=== PATIENT | female | born 1995 | race Caucasian/White ===

== ENCOUNTER 2018-10-15 12:49 | Outpatient (CLI) | payer MEDICAID, OTHER ==
[~2018-10-15] VITALS: Ht 160 cm; Wt 89.8 kg
[2018-10-15 13:36] VITALS: Ht 160 cm; Wt 89.8 kg
[2018-10-15 13:37] VITALS: BP 129/84; PULSE 98; RESP 17
[2018-10-15] MEDS ORDERED: DEXTROSE 5%-LR 1,000 ML IV SCH (17:00)
--- NOTE | 2018-10-15 18:26 | TRIAGE ---
OB Triage Datetime Report Generated by CPN: 10/15/2018 18:26 Datetime: 10/15/2018 18:19 Labor Evaluation Pattern: Normal: <= 5 Contractions in 10 Minutes Resting Tone [place]: Relaxed Heart Rate FHR Baseline Rate: 140 Variability: Moderate 6-25 bpm Accelerations: 15X15 Decelerations: None Category: Category I Pain Assessment Pain Presence: None/Denies Pain Type: N/A Datetime: 10/15/2018 17:30 Labor Evaluation Pattern: Normal: <= 5 Contractions in 10 Minutes Resting Tone [place]: Relaxed Contraction Comments: no uc Heart Rate FHR Baseline Rate: 145 Variability: Moderate 6-25 bpm Decelerations: None Category: Category I Pain Assessment Pain Presence: None/Denies Pain Type: N/A Datetime: 10/15/2018 16:30 Labor Evaluation Pattern: Normal: <= 5 Contractions in 10 Minutes Resting Tone [place]: Relaxed Contraction Comments: NO UC Heart Rate FHR Baseline Rate: 135 Variability: Moderate 6-25 bpm Accelerations: 15X15 Decelerations: Variable Category: Category II Datetime: 10/15/2018 15:22 Heart Rate FHR Baseline Rate: 145 Variability: Moderate 6-25 bpm Accelerations: 10X10 Decelerations: None Comments: modetate variability with period of time minimal variability Datetime: 10/15/2018 14:29 Labor Evaluation Pattern: Normal: <= 5 Contractions in 10 Minutes Resting Tone [place]: Relaxed Contraction Comments: no uc Heart Rate FHR Baseline Rate: 145 Variability: Moderate 6-25 bpm Accelerations: 10X10 Pain Assessment Pain Presence: None/Denies Pain Type: N/A Datetime: 10/15/2018 13:36 Assessment Type: Triage Maternal Assessment Level of Consciousness: Fully Conscious DTR's/Clonus: DTRs 2+; No Clonus Headache: Denies Blurred Vision: No Respiratory Effort: Unlabored; Regular Rhythm; Equal Expansion Breath Sounds, Left: Clear and Equal Breath Sounds, Right: Clear and Equal Nausea/Vomiting: Denies RUQ Epigastric Pain: Denies Lower Extremities Edema: None Degree: None Upper Extremities Edema: None Degree: None Facial Edema: None Fall Risk Assessment History of Falling: (0) No Secondary Diagnosis: (0) No Ambulatory Aid: (0) Bedrest/Nurse Assist IV Therapy: (0) No Gait: (0) Normal/Bedrest/Immobile Mental Status: (0) Oriented to Own Ability Fall Score: 0 Fall Risk Score Definition: No Risk: No action required Datetime: 10/15/2018 13:27 Time of Arrival: 10/15/2018 12:45 EGA: 37.5 Arrived By: Ambulatory Arrived From: Dr. Lane Chief Complaint: extended monitor due to non-reactive nst @ office Movement: Present Contractions: Denies/Absent Rupture of Membranes: Denies Vaginal Bleeding: None Vaginal Discharge: Denies Recent Sexual Intercouse: Denies Abdominal Trauma: Not Applicable Patient Complaints: None Time Provider Notified: 10/15/2018 12:21 Provider Notified:
--- NOTE | 2018-10-25 07:16 | PN ---
Triage Information Date/Time late entry for service rendered on 10/15/18 Reason for visit: for NST Weeks of Gestation 37w5d /Para Diabetes: none Hypertention: induced Objective Heart Rate: 150's Heart Rate Comments CAT I Contractions: None Results/Medications Imaging Results BPP 8 SHARMIN 11 Disposition: Discharge Assessment/Plan A IUP 37w5D antepartum test P discharge home withroutine labor instructions CHEL LAUREN MD Oct 25, 2018 07:03
== END 2018-10-15 18:30 | disposition home or self-care (01) ==
LOC: OBT 12:49 → PP1 12:49 → L-D 13:25 → OBT 18:30
PROVIDERS: ATTEND Specialist
DX: O13.3 Gestational [pregnancy-induced] hypertension without significant proteinuria, third trimester (principal); Z3A.37 37 weeks gestation of pregnancy
CPT/HCPCS: 76818; 96360; J7121; Z7500; G0463

== ENCOUNTER 2018-10-28 05:30 | Inpatient (IN) | payer OTHER ==
[~2018-10-28] VITALS: Ht 158.8 cm; Wt 89.8 kg
[2018-10-28 06:16] VITALS: Ht 158.8 cm; Wt 89.8 kg
[2018-10-28 06:17] VITALS: BP 127/84; PULSE 98; RESP 18
[2018-10-28] MEDS: LACTATED RINGER'S 1,000 ML IV SCH ×3 (06:20→21:47)
[2018-10-28] MEDS ORDERED: PHENYLephrine (100 MCG/ML) 10ML SYG ONE (06:28)
[2018-10-28] MEDS ORDERED: morphine SULFATE/PF (10 MG/10 ML) INJ ONE (06:28)
[2018-10-28] MEDS ORDERED: ONDANSETRON 4 MG INJ ONE (06:28)
[2018-10-28] MEDS ORDERED: CARBOPROST 250 MCG INJ IM PRN (06:30)
[2018-10-28] MEDS ORDERED: CEFAZOLIN 2 GM/50 ML (PMX) 50 ML IVPB SCH (06:30)
[2018-10-28] MEDS ORDERED: OXYTOCIN 30 UNITS/LR 500 ML IV PRN (06:30)
[2018-10-28] MEDS ORDERED: METHYLERGONOVINE 0.2 MG INJ IM PRN (06:30)
[2018-10-28] MEDS ORDERED: OXYTOCIN 30 UNITS/LR 500 ML IV SCH (06:30)
[2018-10-28] MEDS ORDERED: MISOPROSTOL 200 MCG TAB PR PRN ×2 (06:30→08:00)
--- NOTE | 2018-10-28 06:31 | PREAC ---
Date/Time of Note Date/Time of Note DATE: 10/28/18 TIME: 06:29 Anesthesia Eval and Record Evaluation Time Pre-Procedure Interview DATE: 10/28/18 TIME: 06:29 Age 23 Sex female NPO: 8 hrs Preoperative diagnosis Previous Planned procedure Repeat Past Medical History Past Medical History: Includes Cardio: Other ( Induced HTN) Pulm: Asthma Surgery & Anesthesia Issues No known issue Meds Anticoagulation: No Beta Parisa within 24 hr: No Reason Beta Parisa not given: Pt. not on B-Parisa No Active Prescriptions or Reported Meds Current Medications Lactated Ringer's 1,000 ml @ 125 mls/hr Q8H IV Last administered on 10/28/18at 06:20; Admin Dose 125 MLS/HR; Start 10/28/18 at 06:09 Cefazolin Sodium/ Dextrose 50 ml @ 100 mls/hr ONCE IVPB ; Start 10/28/18 at 06:30 Oxytocin/Lactated Ringer's 500 ml @ 125 mls/hr POST IV ; Start 10/28/18 at 06:30 Oxytocin/Lactated Ringer's 500 ml @ 0 mls/hr ONCE PRN IV .VAGINAL BLEEDING; Start 10/28/18 at 06:30 Methylergonovine Maleate (Methergine) 0.2 mg ONCE PRN IM .VAGINAL BLEEDING; Start 10/28/18 at 06:30 Carboprost Tromethamine (Hemabate) 250 mcg ONCE PRN IM .VAGINAL BLEEDING; Start 10/28/18 at 06:30 Misoprostol (Cytotec) 1,000 mcg ONCE PRN ND .VAGINAL BLEEDING; Start 10/28/18 at 06:30 Meds reviewed: Yes Allergies Coded Allergies: No Known Allergy (Unverified , 10/15/18) Allergies Reviewed: Yes Labs/Studies Labs Reviewed: Reviewed by anesthesiologist Result Diagram: 10/28/18 0608 Laboratory Tests 10/28/18 06:08 test: N/A Pre-procedure Exam Last vitals Vital Signs Date Temp Pulse Resp B/P (MAP) Pulse Ox O2 O2 Flow FiO2 Time Delivery Rate 10/28/18 98.2 98 18 127/84 06:17 (98) Airway: Adequate mouth opening Mallampati: Mallampati II Teeth: Normal Lung: Normal Heart: Normal ASA Physical Status ASA physical status: 2 Emergency: None Planned Anesthetic Neuraxial: Spinal Planned Pain Management Sub-arachniod narcotics Pre-operative Attestations Prior to commencing anesthesia and surgery, the patient was re-evaluated, there was verification of: *The patient's identity *The results of appropriate recent lab work and preoperative vital signs *The above evaluation not changing prior to induction *Anesthetic plan, risk benefits, alternative and complications discussed with patient/family; questions answered; patient/family understands, accepts and wi shes to proceed. MERISSA MARION MD Oct 28, 2018 06:31
[2018-10-28] MEDS ORDERED: OXYTOCIN 10 UNIT INJ ONE (07:00)
--- NOTE | 2018-10-28 07:43 | HP ---
Date/Time of Note Date/Time of Note DATE: 10/28/18 TIME: 07:41 OB - History Hx of Present Free Text/Dictation 23 YO with EDC 019 with IUP at 39.1 weeks with history of previous delivery, who desires to have repeat delivery. I discussed with the patient the risks, benefits, indications, and alternatives of procedure including but not limited to risks of infection, bleeding, damage to other organs, bowel, bladder, hernia formation, scar formation, possibility of blood transfusion, possible need for emergency hysterectomy. She was allowed to ask questions. All her questions were answered. Informed consent has been obtained. Care: Good Care Ultrasounds: Normal mid trimester US Obstetrical Complications: None, Other (Chronic hypertension, h/o PIH and Asthma) Medical Complications: Other (Chronic hypertension, h/o PIH and Asthma) Past Family/Social History * Past Medical, Surgical, Family and Obstetric Histories reviewed from chart. OB Admission Exam Vital Signs Vital Signs Vital Signs Date Temp Pulse Resp B/P (MAP) Pulse Ox O2 O2 Flow FiO2 Time Delivery Rate 10/28/18 98.2 98 18 127/84 06:17 (98) Physical Exam HEENT: WNL Heart: Rhythm Normal Lungs: Clear, Equal Abdomen: WNL Extremities: Normal Reflexes: Normal Last 72 hours Lab Results CBC & BMP 10/28/18 06:08 OB Assessment/Plan Other Assessment: IUP at 39.1 weeks Desires repeat c/s Plan: Section YINA MITCHELL MD Oct 28, 2018 07:43
[2018-10-28] MEDS ORDERED: LACTATED RINGER'S 1,000 ML IV SCH (07:44)
[2018-10-28] MEDS ORDERED: OXYCODONE/ACETAMINOPHEN (5/325) TAB PO PRN ×4 (08:00→08:30)
[2018-10-28] MEDS ORDERED: NA PHOSPHATE/BIPHOS 133 ML ENEMA PR PRN (08:00)
[2018-10-28] MEDS ORDERED: LANOLIN HPA 1 PKT TOP PRN (08:00)
[2018-10-28] MEDS ORDERED: TRIMETHOBENZAMIDE 100 MG/ML VIAL IM PRN (08:30)
[2018-10-28] MEDS ORDERED: NALBUPHINE HCL (10 MG/1 ML) INJ IV PRN (08:30)
[2018-10-28] MEDS ORDERED: LABETALOL HCL 20MG INJ IV PRN (08:30)
[2018-10-28] MEDS ORDERED: ONDANSETRON 4 MG INJ IV PRN ×2 (08:30)
[2018-10-28] MEDS ORDERED: hydrALAzine 20 MG INJ IV PRN (08:30)
[2018-10-28] MEDS ORDERED: MIDAZOLAM 1 MG/ML 2 ML INJ IV PRN (08:30)
[2018-10-28] MEDS ORDERED: DIPHENHYDRAMINE 50 MG INJ IV PRN ×2 (08:30)
[2018-10-28] MEDS ORDERED: EPHEDrine 25 MG/5 ML SYG IV PRN (08:30)
[2018-10-28] MEDS ORDERED: ALBUTEROL 0.083% (NEB) 2.5 MG/3 ML AMP HHN PRN (08:30)
[2018-10-28] MEDS ORDERED: morphine 2 MG INJ IV PRN ×2 (08:30)
[2018-10-28] MEDS ORDERED: HYDROmorphONE 1 MG/5 ML IV SYRINGE IV PRN (08:30)
[2018-10-28] MEDS ORDERED: MEPERIDINE 25 MG INJ IV PRN (08:30)
[2018-10-28] MEDS ORDERED: IPRATROPIUM (NEB) 0.5 MG/2.5 ML AMP HHN PRN (08:30)
[2018-10-28] MEDS ORDERED: FENTAnyl 50 MCG/ML VIAL IV PRN (08:30)
[2018-10-28] MEDS ORDERED: NALOXONE (0.4 MG/ML) INJ IV PRN (08:30)
--- NOTE | 2018-10-28 08:57 | OPR ---
Date/Time of Note Date/Time of Note DATE: 10/28/18 TIME: 08:52 Operative Report Procedure Date: Oct 28, 2018 Preoperative Diagnosis IUP at 39.1 weeks Desires repeat delivery Postoperative Diagnosis Same Bicornuate Uterus, was on the right cornua Operation/Procedure Performed Repeat Delivery Surgeon Bib Gray MD Patient Registration Clerk Yariel Castillo MD Anesthesia Type: spinal Estimated Blood Loss: other (500 ml) Transfusion none Specimen none Grafts/Implants none Tubes/Drains Berger Cath Complications none Pt Condition Post Procedure: stable Disposition: PACU Procedure Description Findings: normal tubes and ovaries bilaterally, Bicornuate Uterus, was on the right cornua The risks, benefits, indications, alternatives of procedure including, but not limited to risk of infection, bleeding, damage to other organs, bowel, bladder, hernia formation, scar formation, possibility of blood transfusions discussed with patient. She was allowed to ask questions. All her questions were answered. Informed consent was obtained. DESCRIPTION OF PROCEDURE: She was taken to the operating room. Spinal anesthesia was induced. She was prepped and draped in the usual sterile fashion. Surgical time out one. Anesthesia was tested to be adequate. With permission from anesthesiologist, a knife was used to make a Pfannenstiel skin incision. The incision was taken down in layers. The fascia was cut, undermined and from the underlying muscle using sharp and blunt dissection. All the bleeders were cauterized. Peritoneum was entered bluntly. A low transverse incision was developed over the uterus. Amniotic fluid was clear and adequate. A viable infant in vertex presentation was delivered without any difficulty. The cord was clamped and cut, handed to awaiting team. Placenta was then delivered. Uterus was exteriorized, wrapped around a moist lap. Inside uterus was cleaned using a dry lap. All residual membranes were removed. The uterine incision was then closed using #1 Monocryl in 2 layers. The uterus was inserted back inside the abdominal cavity. Irrigation was done carefully. Careful evaluation of the uterine incision revealed no further bleeding. The peritoneum and rectus muscles and fascia were evaluated. All bleeders cauterized. Peritoneum was closed using 2-0 Monocryl. At this time, the count was correct. Rectus muscle was reapproximated using 2-0 Monocryl. Rectus fascia was closed using #1 Vicryl. Subcutaneous tissue was cleaned and irrigated. All bleeders cauterized and the skin closed using 4-0 Monocryl. All counts correct. BIB GRAY MD Oct 28, 2018 08:57
--- NOTE | 2018-10-28 08:59 | PAC ---
Date/Time of Note Date/Time of Note DATE: 10/28/18 TIME: 08:16 Post-Anesthesia Notes Post-Anesthesia Note Last documented vital signs Vital Signs Date Temp Pulse Resp B/P (MAP) Pulse Ox O2 O2 Flow FiO2 Time Delivery Rate 10/28/18 98.2 98 18 127/84 06:17 (98) Activity: WNL Respiratory function: WNL Cardiovascular function: WNL Mental status: Baseline Pain reasonably controlled: Yes Hydration appropriate: Yes Nausea/Vomiting absent: Yes MERISSA MARION MD Oct 28, 2018 08:59
[2018-10-28] MEDS ORDERED: ALBUTEROL HFA 8 GM INHALER INH PRN (09:00)
[2018-10-28] MEDS: SENNA/DOCUSATE NA (8.6MG/50MG) TAB PO SCH ×2 (09:00→21:00)
[2018-10-28] MEDS: IBUPROFEN 600 MG TAB PO SCH ×2 (12:00→18:00)
[2018-10-28] MEDS: KETOROLAC 30 MG INJ IV PRN (12:40)
[2018-10-28 14:18] VITALS: BP 121/69; PULSE 86; RESP 18
[2018-10-28 16:00] VITALS: BP 119/80; PULSE 86; RESP 18
[2018-10-28 16:30] VITALS: BP 117/74; PULSE 80; RESP 18
[2018-10-28 17:30] VITALS: BP 121/67
[2018-10-28 19:30] VITALS: BP 117/73; PULSE 88; RESP 18
[2018-10-29 00:30] VITALS: BP 105/54; PULSE 87; RESP 18
[2018-10-29] MEDS: KETOROLAC 30 MG INJ IV PRN (02:22)
[2018-10-29 04:00] VITALS: BP 115/68; PULSE 80; RESP 18
[2018-10-29] MEDS: IBUPROFEN 600 MG TAB PO SCH ×5 (06:00→23:43)
[2018-10-29 08:25] VITALS: BP 114/75; PULSE 94; RESP 18
[2018-10-29] MEDS: SENNA/DOCUSATE NA (8.6MG/50MG) TAB PO SCH ×2 (08:42→21:09)
[2018-10-29] MEDS: LACTATED RINGER'S 1,000 ML IV SCH (11:44)
[2018-10-29 12:08] VITALS: BP 123/80; PULSE 81; RESP 17
[2018-10-29 15:55] VITALS: BP 116/88; PULSE 85; RESP 18
--- NOTE | 2018-10-29 16:59 | QN ---
Documentation Comment s/p c/s Subjective: no complaint Objective: Afebrile, VSS NAD A&O Abdomen: soft, appropriate tender Incision: no sign of bleeding/infection mild lochia Extremity: 1+ edema bilaterally Assessment: S/p C/S POD # 1 Recovering Well Plan: current care YINA MITCHELL MD Oct 29, 2018 16:59
[2018-10-29 19:50] VITALS: BP 116/72; PULSE 88; RESP 19
[2018-10-30 04:08] VITALS: BP 109/72; PULSE 77; RESP 19
[2018-10-30] MEDS: IBUPROFEN 600 MG TAB PO SCH ×3 (05:42→18:05)
[2018-10-30 08:00] VITALS: BP 105/67; PULSE 80; RESP 18
[2018-10-30] MEDS: SENNA/DOCUSATE NA (8.6MG/50MG) TAB PO SCH ×2 (08:41→21:07)
[2018-10-30 16:00] VITALS: BP 125/85; PULSE 74; RESP 20
--- NOTE | 2018-10-30 17:58 | QN ---
Documentation Comment Postop day #2 Status post repeat Patient stable and afebrile Vital signs stable VS - Last 72 Hours, by Label Date Temp Pulse Resp B/P (MAP) Pulse Ox O2 O2 Flow FiO2 Time Delivery Rate 10/30/18 97.6 74 20 125/85 16:00 (98) 10/30/18 97.9 80 18 105/67 08:00 (80) 10/30/18 97.9 77 19 109/72 Room Air 04:08 (84) 10/29/18 97.9 88 19 116/72 Room Air 19:50 (87) 10/29/18 98.6 85 18 116/88 Room Air 15:55 (97) 10/29/18 98.3 81 17 123/80 Room Air 12:08 (94) 10/29/18 97.8 94 18 114/75 Room Air 08:25 (88) 10/29/18 98.6 80 18 115/68 96 Room Air 04:00 (84) 10/29/18 98.3 87 18 105/54 96 Room Air 00:30 (71) 10/28/18 98.2 88 18 117/73 98 Room Air 19:30 (88) 10/28/18 121/67 Room Air 17:30 (85) 10/28/18 98.5 80 18 117/74 Room Air 16:30 (88) 10/28/18 98.4 86 18 119/80 Room Air 16:00 (93) 10/28/18 98.1 86 18 121/69 Room Air 14:18 (86) 10/28/18 98.2 98 18 127/84 06:17 (98) Hematology - 72 Hrs Test 10/28/18 06:08 10/29/18 06:13 Hematocrit 39.7 % (37.0-47.0) 33.3 % (37.0-47.0) L Hemoglobin 13.5 g/dl (12.0-16.0) 11.2 g/dl (12.0-16.0) L Mean Corpuscular 29.8 pg (29.0-33.0) 30.1 pg (29.0-33.0) Hemoglobin Mean Corpuscular 34.0 g/dl (32.0-37.0) 33.6 g/dl (32.0-37.0) Hemoglobin Concent Mean Corpuscular Volume 87.6 fl (82.0-101.0) 89.5 fl (82.0-101.0) Mean Platelet Volume 10.1 fl (7.4-10.4) 9.3 fl (7.4-10.4) Platelet Count 255 10^3/UL (140-415) 209 10^3/UL (140-415) Red Blood Count 4.53 10^6/ul (4.20-5.40) 3.72 10^6/ul (4.20-5.40) L Red Cell Distribution 12.9 % (11.5-14.5) 12.9 % (11.5-14.5) Width White Blood Count 12.0 10^3/ul (4.8-10.8) 11.8 10^3/ul (4.8-10.8) H H Abdomen soft, fundus firm Incision clean,dry,intact Extremities nontender Assessment and plan Patient stable and doing well Encouraged to ambulate Continue with routine postop care JOSÉ CROWLEY MD Oct 30, 2018 17:58
[2018-10-30 19:40] VITALS: BP 117/78; PULSE 84; RESP 19
[2018-10-31] MEDS: IBUPROFEN 600 MG TAB PO SCH ×3 (00:25→12:19)
[2018-10-31 04:29] VITALS: BP_SYST 117; BP_SYST 120; BP_DIAS 78; BP_DIAS 81; PULSE 74; PULSE 83; RESP 20
[2018-10-31 08:30] VITALS: BP 121/94; PULSE 82; RESP 18
[2018-10-31] MEDS: SENNA/DOCUSATE NA (8.6MG/50MG) TAB PO SCH (09:00)
[2018-10-31] MEDS ORDERED: DIPHTH/TET/ACEL PERTUSS (ADULT) 0.5 ML VIAL IM* ONE (09:00)
[2018-10-31] MEDS ORDERED: MEASLES,MUMPS,RUBELLA VACCINE INJ SC* ONE (09:00)
--- NOTE | 2018-10-31 12:30 | DS ---
Date/Time of Note Date/Time of Note DATE: 10/31/18 TIME: 12:30 Discharge Summary Admission/Discharge Info Admit Date/Time Oct 28, 2018 at 05:30 Discharge Date/Time oct Discharge Diagnosis Patient Condition: Good Hospital Course uneventful Home Meds No Active Prescriptions or Reported Meds Primary Care Provider MD TANMAY Lazo RAMIN M.D. Oct 31, 2018 12:30
--- NOTE | 2018-10-31 12:30 | QN ---
Documentation Comment POD#3 is stable afebrile tolerates diet No VB +BM +voids VS stable Gen NAD Abd soft NT ND Incision intact Genitalia No blood at perineum --->Discharge Home --->precautions discussed ROSA DONATO M.D. Oct 31, 2018 12:30
--- NOTE | 2018-11-01 20:09 | DELSUM ---
Delivery Summary A-C Datetime Report Generated by CPN: 11/01/2018 20:09 DELIVERY PERSONNEL Installation Helper: Ciara Wu MATERNAL INFORMATION Delivery Anesthesia: Spinal Medications in Delivery: SEE ANESTHESIA FLOWSHEET Delivery QBL (ml): 500 Placenta Cultured: No Maternal Complications: None LABOR SUMMARY EDC: 10/31/2018 00:00 No. Babies in Womb: 1 Attempted: No Labor Anesthesia: None LABOR INFORMATION Onset of Labor: 10/28/2018 01:00 Oxytocin: N/A Group B Beta Strep: Negative Antibiotics # of Doses: 1 Antibiotics Time of Last Dose: 10/28/2018 07:45 Steroids Given: None Reason Steroids Not Administered: Not Applicable MEMBRANES Membranes Rupture Method: Artificial Rupture of Membranes: 10/28/2018 08:12 Length of Rupture (hr): 0.02 Amniotic Fluid Color: Clear Amniotic Fluid Amount: Moderate Amniotic Fluid Odor: None STAGES OF LABOR Stage 3 hr: 0 Stage 3 min: 1 Total Time in Labor hr: 7 Total Time in Labor min: 14 CSECTION DELIVERY Primary Indication: Repeat Elective Secondary Indication: N/A CSection Urgency: Elective CSection Incidence: Repeat Labor: No Labor Elective: N/A CSection Incision: Lower Uterine Transverse BABY A INFORMATION Delivery Date/Time: 10/28/2018 08:13 Method of Delivery: Born in Route : No : N/A Forceps: N/A Vacuum Extraction: N/A Shoulder Dystocia : N/A SHOULDER DYSTOCIA BABY A Infant Delivery Date/Time: 10/28/2018 08:13 PRESENTATION/POSITION BABY A Presentation: Cephalic Cephalic Presentation: N/A Breech Presentation: N/A PLACENTA INFORMATION BABY A Placenta Delivery Time : 10/28/2018 08:14 Placenta Method of Delivery: Manual Removal Placenta Status: Delivered SCORES BABY A Heart Rate 1 min: >100 bpm Resp Effort 1 min: Good Cry Reflex Irritability 1 min: Cough/Sneeze/Pulls Away Muscle Tone 1 min: Active Motion Color 1 min: Blue/Pale Resuscitation Effort 1 min: Tactile Stimulation SCORE 1 MIN: 8 Heart Rate 5 min: >100 bpm Resp Effort 5 min: Good Cry Reflex Irritability 5 min: Cough/Sneeze/Pulls Away Muscle Tone 5 min: Active Motion Color 5 min: Body [place], Extremit Blue Resuscitation Effort 5 min: Tactile Stimulation SCORE 5 MIN: 9 INFANT INFORMATION BABY A Gestational Age at Delivery: 39.4 Gestational Status: Full Term- 39- 40.6 Weeks Outcome : Liveborn Condition : Stable Sex: Female IDENTIFICATION/MEDS BABY A ID Band Number: [id number] ID Band Location: Right Leg; Left Arm Sensor Applied: Yes Sensor Number: [id number] Sensor Location : Cord Clamp Vitamin K Given : Not Given Erythromycin Given: Not Given WEIGHT/LENGTH BABY A Infant Birthweight (gm): 3305 Infant Weight (lb): 7 Infant Weight (oz): 5 Length (in): 20.00 Infant Length (cm): 50.80 CORD INFORMATION BABY A No. Cord Vessels: 3 Nuchal Cord : Around Neck x1, Loose Cord Blood Taken: Yes Suction: Mouth; Nose ASSESSMENT BABY A Infant Complications: None Physical Findings at Delivery: Within Normal Limits Respirations: Appears Normal Hydroelectric Machinery Mechanic/ALS Called : No Infant Care By: FREDERICK Transferred To: Remains with Mother
== END 2018-10-31 13:00 | disposition home or self-care (01) | DRG 788 ==
LOC: L-D 05:30 → PP1 15:15
PROVIDERS: ADMIT Specialist; ATTEND Specialist
PROC: 10D00Z1 Extraction of Products of Conception, Low, Open Approach (ICD-10-PCS; principal; 2018-10-28 07:30)
DX: O10.92 Unspecified pre-existing hypertension complicating childbirth (principal); Z3A.39 39 weeks gestation of pregnancy; Z37.0 Single live birth
CPT/HCPCS: 85025; 85610; 85730; 86592; 86850; 86900; 86901; 87340; 90715; 99464; J0690; J1885; J2274; J2370; J2405; J2590; J7120